=== PATIENT | male | born 1970 | race Two or more races ===

== ENCOUNTER 2025-01-21 11:33 | Inpatient (IN) | payer OTHER ==
[~2025-01-21] VITALS: Ht 167.6 cm; Wt 109.1 kg
[2025-01-21 13:16] VITALS: PULSE 60; RESP 18; O2SAT 98; O2SAT 99
[2025-01-21 13:17] LABS: COVID AG,FIA SOURCE NASAL SWAB
[2025-01-21] MEDS: IPRATROPIUM BROMIDE 0.5 MG/2.5 ML NEB SOLUTION NEB ONE (13:17)
[2025-01-21] MEDS: ALBUTEROL SULFATE 2.5 MG/0.5 ML NEB SOLUTION NEB ONE (13:17)
[2025-01-21 13:20] LABS: BASOPHILS % (AUTO) 0.3 % (0.0-2.0); HEMATOCRIT 39.9 % (41-53); HEMOGLOBIN 13.4 g/dL (13.5-17.5); LYMPHOCYTES # (AUTO) 4.3 K/uL (1.0-4.8); LYMPHOCYTES % (AUTO) 31.5 % (22.0-44.0); MEAN CORPUSCULAR HEMOGLOBIN 29.9 pg (26.0-34.0); MEAN CORPUSCULAR HGB CONC 33.7 G/dL (31.0-37.0); MEAN CORPUSCULAR VOLUME 89 fL (80-100); MONOCYTES # (AUTO) 1.1 K/uL (0.1-1.0); MONOCYTES % (AUTO) 7.9 % (2.0-9.0); NEUTROPHILS % (AUTO) 59.3 % (40.0-70.0); PLATELET COUNT (AUTO) 308 K/uL (150-450); RED CELL DISTRIBUTION WIDTH 13.5 % (11.5-14.5); WHITE BLOOD COUNT (AUTO) 13.5 K/uL (4.5-11.0)
[2025-01-21] MEDS: MethylPREDNISolone SOD SUCC 125 MG/2 ML VIAL IVP ONE (13:28)
[2025-01-21 13:30] LABS: ANION GAP 5 mmol/L (8-16); CALCIUM, TOTAL 8.5 mg/dL (8.8-10.5); CARBON DIOXIDE 30 mmol/L (22-29); CHLORIDE 106 mmol/L (98-107); CREATININE 0.86 mg/dL (0.60-1.30); GLOMERULAR FILTR. RATE CALC > 60 mL/min (>60); GLUCOSE,RANDOM 118 mg/dL (70-110); POTASSIUM 4.4 mmol/L (3.5-5.1); SODIUM SERUM 141 mmol/L (136-145); UREA NITROGEN, BLOOD 14 mg/dL (7-18)
[2025-01-21] MEDS: FUROSEMIDE 40 MG/4 ML VIAL IVP ONE (13:30)
[2025-01-21] MEDS: AZITHROMYCIN 500 MG/NS 250 ML IV ONE (13:30)
[2025-01-21] MEDS: ASPIRIN 325 MG TABLET PO ONE (13:31)
[2025-01-21 13:39] LABS: LIPASE 42 U/L (16-77); TROPONIN I-HIGH SENSITIVITY 9 ng/L (<76)
[2025-01-21 13:42] LABS: INFLUENZA TYPE A NEGATIVE FOR TYPE A (NEGATIVE); INFLUENZA TYPE B NEGATIVE FOR TYPE B (NEGATIVE); SARS-COV2 (COVID) ANTIGEN,FIA Negative (Negative)
[2025-01-21 13:46] LABS: B-TYPE NATRIURETIC PEPTIDE < 5 pg/mL (0-100)
[2025-01-21 13:59] LABS: LACTIC ACID 1.4 mmol/L (0.4-2.0)
[2025-01-21] MEDS ORDERED: ONDANSETRON HCL 4 MG/2 ML VIAL IVP PRN (15:45)
[2025-01-21] MEDS ORDERED: MAGNESIUM HYDROXIDE SUSPENSION 30 ML UDCUP PO PRN (15:45)
[2025-01-21] MEDS ORDERED: BISACODYL 10 MG RECTAL RECTAL SUPPOSITORY PR PRN (15:45)
[2025-01-21] MEDS ORDERED: IPRATROPIUM BROMIDE 0.5 MG/2.5 ML NEB SOLUTION NEB PRN (15:45)
[2025-01-21] MEDS ORDERED: ALBUTEROL SULFATE 2.5 MG/0.5 ML NEB SOLUTION NEB PRN (15:45)
[2025-01-21 15:51] LABS: APPEARANCE,URINE CLEAR (CLEAR); BILIRUBIN,URINE NEGATIVE (NEGATIVE); COLOR,URINE COLORLESS (YELLOW); GLUCOSE, URINE (UA) NEGATIVE (NEGATIVE); KETONES,URINE NEGATIVE (NEGATIVE); LEUKOCYTE ESTERASE ,URINE NEGATIVE (NEGATIVE); NITRATE,URINE NEGATIVE (NEGATIVE); OCCULT BLOOD,URINE NEGATIVE (NEGATIVE); PROTEIN,URINE NEGATIVE (NEGATIVE); SPECIFIC GRAVITIY, URINE 1.009 (1.003-1.030); UROBILINOGEN,URINE <=1.0 mg/dL (<=1.0)
[2025-01-21 15:57] LABS: ALCOHOL, URINE DRUG SCREEN NEGATIVE (NEGATIVE); AMPHET/METH SCREEN,URINE NEGATIVE (NEGATIVE); BARBITURATE SCREEN, URINE NEGATIVE (NEGATIVE); BENZODIAZEPINES SCREEN,URINE NEGATIVE (NEGATIVE); CANNABINOID SCREEN,URINE NEGATIVE (NEGATIVE); COCAINE SCREEN,URINE NEGATIVE (NEGATIVE); METHADONE SCREEN, URINE NEGATIVE (NEGATIVE); OPIATE SCREEN,URINE NEGATIVE (NEGATIVE); PHENCYCLIDINE SCREEN,URINE NEGATIVE (NEGATIVE)
[2025-01-21] MEDS: CefTRIAXone 1 GM/DEXTROSE 50 ML IV SCH (16:02)
[2025-01-21] MEDS: HEPARIN SODIUM,PORCINE 5,000 UNITS/ML VIAL SQ SCH (16:03)
[2025-01-21 16:13] LABS: RBC,URINE None Seen /HPF (0-2)
[2025-01-21 16:14] LABS: BACTERIA,URINE None Seen /HPF (None Seen); WBC,URINE None Seen /HPF (0-5)
[2025-01-21 20:45] VITALS: BP 130/78; PULSE 76; RESP 18; TEMP 97.7; O2SAT 96
[2025-01-21] MEDS ORDERED: SODIUM CHLORIDE 3% 15 ML NEB SOLUTION NEB ONE (21:08)
[2025-01-21 21:20] VITALS: PULSE 72; RESP 20; O2SAT 96
[2025-01-22] MEDS ORDERED: SODIUM CHLORIDE 3% 15 ML NEB SOLUTION NEB ONE (05:17)
[2025-01-22 05:41] VITALS: BP 139/83; PULSE 61; RESP 16; TEMP 97.9; O2SAT 99
[2025-01-22 06:07] LABS: HIV 1-2 SCREEN 4TH GEN W/RFLX Non Reactive (Non Reactive)
[2025-01-22 08:00] VITALS: BP 132/81; PULSE 70; RESP 18; TEMP 97.7; O2SAT 97
[2025-01-22] MEDS: PANTOPRAZOLE SODIUM 40 MG DR TABLET PO SCH (08:20)
[2025-01-22 10:21] LABS: MTB PCR w/Rif. Resistance-SPUT NOT DETECTED (Not Detectd)
[2025-01-22 12:01] VITALS: BP 117/80; PULSE 67; RESP 18; TEMP 98; O2SAT 98
[2025-01-22 16:00] VITALS: BP 120/79; PULSE 68; RESP 18; TEMP 97.9; O2SAT 98
[2025-01-22] MEDS ORDERED: SODIUM CHLORIDE 0.9% 500 ML IV ONE (16:13)
[2025-01-22 20:46] VITALS: BP 139/92; PULSE 67; RESP 19; TEMP 98; O2SAT 94
[2025-01-22 21:35] LABS: MTB PCR w/Rif. Resistance-SPUT NOT DETECTED (Not Detectd)
[2025-01-23] VITALS (7 sets, daily range): BP systolic 127–139; BP diastolic 84–104; PULSE 55–75; RESP 17–19; TEMP 97.6–98.4; O2SAT 95–98
[2025-01-23] MEDS ORDERED: SODIUM CHLORIDE 3% 15 ML NEB SOLUTION NEB ONE (02:08)
[2025-01-23] MEDS: ACETAMINOPHEN 325 MG TABLET PO PRN (03:46)
[2025-01-23 09:07] LABS: BASOPHILS % (AUTO) 0.6 % (0.0-2.0); EOSINOPHILS % (AUTO) 0.5 % (1.0-6.0); HEMATOCRIT 39.8 % (41-53); HEMOGLOBIN 13.4 g/dL (13.5-17.5); LYMPHOCYTES # (AUTO) 6.2 K/uL (1.0-4.8); MEAN CORPUSCULAR HEMOGLOBIN 29.7 pg (26.0-34.0); MEAN CORPUSCULAR HGB CONC 33.6 G/dL (31.0-37.0); MEAN CORPUSCULAR VOLUME 88 fL (80-100); MONOCYTES # (AUTO) 0.7 K/uL (0.1-1.0); MONOCYTES % (AUTO) 5.2 % (2.0-9.0); NEUTROPHILS # (AUTO) 5.9 K/uL (1.8-7.7); NEUTROPHILS % (AUTO) 45.7 % (40.0-70.0); PLATELET COUNT (AUTO) 296 K/uL (150-450); RED CELL DISTRIBUTION WIDTH 13.4 % (11.5-14.5); WHITE BLOOD COUNT (AUTO) 12.9 K/uL (4.5-11.0)
[2025-01-23 09:16] LABS: ANION GAP 8 mmol/L (8-16); CALCIUM, TOTAL 8.3 mg/dL (8.8-10.5); CARBON DIOXIDE 27 mmol/L (22-29); CHLORIDE 103 mmol/L (98-107); CREATININE 0.87 mg/dL (0.60-1.30); GLOMERULAR FILTR. RATE CALC > 60 mL/min (>60); GLUCOSE,RANDOM 125 mg/dL (70-110); POTASSIUM 3.9 mmol/L (3.5-5.1); SODIUM SERUM 138 mmol/L (136-145); UREA NITROGEN, BLOOD 19 mg/dL (7-18)
[2025-01-23 09:21] LABS: ALANINE AMINOTRANSFERASE 41 U/L (12-78); ALBUMIN 3.2 g/dL (3.4-5.0); ALKALINE PHOSPHATASE 101 U/L (46-116); ASPARTATE AMINOTRANSFERASE 21 U/L (15-37); BILIRUBIN,TOTAL 0.5 mg/dL (0.1-1.0); TOTAL PROTEIN, SERUM 7.3 g/dL (6.4-8.2)
[2025-01-24 04:57] VITALS: BP 128/99; PULSE 70; RESP 18; TEMP 97.7; O2SAT 96
[2025-01-24] MEDS ORDERED: SODIUM CHLORIDE 3% 15 ML NEB SOLUTION NEB ONE (05:23)
[2025-01-24 09:02] VITALS: BP 135/91; PULSE 65; RESP 18; TEMP 97.8; O2SAT 95
[2025-01-24 12:00] VITALS: BP 133/92; PULSE 77; RESP 18; TEMP 98.6; O2SAT 97
[2025-01-24 15:41] VITALS: BP 138/98; PULSE 82; RESP 18; TEMP 98.6; O2SAT 98
[2025-01-24 20:00] VITALS: BP 138/106; PULSE 93; RESP 19; TEMP 97.8; O2SAT 95
[2025-01-25] VITALS (7 sets, daily range): BP systolic 120–140; BP diastolic 76–109; PULSE 75–93; RESP 16–18; TEMP 97.5–98.2; O2SAT 95–97
[2025-01-25 07:04] LABS: BASOPHILS % (AUTO) 0.4 % (0.0-2.0); EOSINOPHILS % (AUTO) 1.7 % (1.0-6.0); HEMATOCRIT 44.4 % (41-53); LYMPHOCYTES # (AUTO) 4.8 K/uL (1.0-4.8); LYMPHOCYTES % (AUTO) 46.9 % (22.0-44.0); MEAN CORPUSCULAR HEMOGLOBIN 30.2 pg (26.0-34.0); MEAN CORPUSCULAR HGB CONC 33.8 G/dL (31.0-37.0); MEAN CORPUSCULAR VOLUME 89 fL (80-100); MONOCYTES # (AUTO) 0.6 K/uL (0.1-1.0); MONOCYTES % (AUTO) 6.1 % (2.0-9.0); NEUTROPHILS # (AUTO) 4.6 K/uL (1.8-7.7); NEUTROPHILS % (AUTO) 44.9 % (40.0-70.0); PLATELET COUNT (AUTO) 318 K/uL (150-450); RED BLOOD CELL COUNT(AUTO) 4.98 MIL/uL (4.50-5.90); RED CELL DISTRIBUTION WIDTH 13.2 % (11.5-14.5); WHITE BLOOD COUNT (AUTO) 10.3 K/uL (4.5-11.0)
[2025-01-25 07:10] LABS: ANION GAP 10 mmol/L (8-16); CALCIUM, TOTAL 9.1 mg/dL (8.8-10.5); CARBON DIOXIDE 25 mmol/L (22-29); CHLORIDE 99 mmol/L (98-107); CREATININE 0.85 mg/dL (0.60-1.30); GLOMERULAR FILTR. RATE CALC > 60 mL/min (>60); GLUCOSE,RANDOM 137 mg/dL (70-110); POTASSIUM 4.2 mmol/L (3.5-5.1); SODIUM SERUM 134 mmol/L (136-145); UREA NITROGEN, BLOOD 16 mg/dL (7-18)
[2025-01-25 12:07] LABS: QUANTIFERON+, Nil Value 0.03 IU/mL; QUANTIFERON+,Mitogen Value >10.00 IU/mL; QUANTIFERON+,TB1 Antigen Value 0.07 IU/mL; QUANTIFERON+,TB2 Antigen Value 0.05 IU/mL; QUANTIFERON, TB GOLD PLUS Negative (Negative)
[2025-01-25] MEDS ORDERED: SODIUM CHLORIDE 3% 15 ML NEB SOLUTION NEB ONE (14:18)
[2025-01-25] MEDS ORDERED: SODIUM CHLORIDE 0.9% 500 ML IV ONE (15:17)
[2025-01-26 04:50] VITALS: BP 132/90; PULSE 82; RESP 18; TEMP 98; O2SAT 97
[2025-01-26 08:24] VITALS: BP 125/87; PULSE 72; RESP 18; TEMP 97.6; O2SAT 97
[2025-01-26 19:53] VITALS: BP 126/82; PULSE 81; RESP 18; TEMP 98.5; O2SAT 96
[2025-01-26] MEDS: ZOLPIDEM TARTRATE 5 MG TABLET PO PRN (20:28)
[2025-01-27 06:15] VITALS: BP 124/80; PULSE 73; RESP 18; TEMP 97.5; O2SAT 98
[2025-01-27 09:07] VITALS: BP 132/94; PULSE 71; RESP 18; TEMP 97.7; O2SAT 96
[2025-01-27] MEDS ORDERED: MAGN-169 PO (16:16)
[2025-01-27] MEDS ORDERED: ACET-2247 PO (16:16)
== END 2025-01-27 19:45 | DRG 291 ==
LOC: EDBD 11:36 → EMS 11:36 → EDH 13:15 → 6S 17:26 → 5S 17:58 → 6S 01-25 11:45
PROVIDERS: ADMIT Hospitalist; ATTEND Hospitalist
DX: I11.0 Hypertensive heart disease with heart failure (principal); I50.33 Acute on chronic diastolic (congestive) heart failure; Z20.822 Contact with and (suspected) exposure to COVID-19; D72.829 Elevated white blood cell count, unspecified; D64.9 Anemia, unspecified; M54.50 Low back pain, unspecified
CPT/HCPCS: 71045; 71250; 80048; 80053; 80307; 81001; 83605; 83690; 83880; 84484; 85025; 86480; 87015; 87040; 87206; 87389; 87556; 87804; 93005; 93306; 94640; 99285; J0456; J0696; J1644; J1940; J2919; J7040; 36415-L1; 36415-TC; J7613